=== PATIENT | female | born 1960 | race Caucasian/White ===

== ENCOUNTER 2019-12-01 12:39 | Emergency (ER) | payer SELFPAY ==
[~2019-12-01] VITALS: Ht 165.1 cm; Wt 70.0 kg
[2019-12-01 13:07] VITALS: BP 120/85
== END 2019-12-01 14:10 | disposition left against medical advice (07) ==
LOC: ER 12:39
DX: Z53.21 Procedure and treatment not carried out due to patient leaving prior to being seen by health care provider (principal)